=== PATIENT | female | born 1995 | race African-American/Black ===

== ENCOUNTER 2016-11-29 11:42 | Emergency (ER) | payer MEDICAID ==
[~2016-11-29] VITALS: Ht 162.6 cm; Wt 87.7 kg
[2016-11-29 13:26] VITALS: BP 128/68
== END 2016-11-29 13:26 | disposition home or self-care (01) ==
LOC: ED 11:42
DX: H66.92 Otitis media, unspecified, left ear (principal); H60.502 Unspecified acute noninfective otitis externa, left ear; H60.332 Swimmer's ear, left ear; Z88.6 Allergy status to analgesic agent; J45.909 Unspecified asthma, uncomplicated
CPT/HCPCS: J2270; Q0162

== ENCOUNTER 2017-01-15 11:07 | Emergency (ER) | payer MEDICAID ==
[~2017-01-15] VITALS: Ht 162.6 cm; Wt 85.9 kg
[2017-01-15 13:34] VITALS: BP 123/76
== END 2017-01-15 13:34 | disposition home or self-care (01) ==
LOC: ED 11:07
DX: R10.9 Unspecified abdominal pain (principal)

== ENCOUNTER 2017-10-13 15:26 | Emergency (ER) | payer OTHER ==
[~2017-10-13] VITALS: Ht 162.6 cm; Wt 80.7 kg
[2017-10-13 16:06] VITALS: Ht 162.6 cm; Wt 80.7 kg
[2017-10-13 20:47] VITALS: BP 120/73
== END 2017-10-13 20:47 | disposition home or self-care (01) ==
LOC: ED 15:26
DX: L03.316 Cellulitis of umbilicus (principal); J45.909 Unspecified asthma, uncomplicated; Z88.6 Allergy status to analgesic agent; Z88.8 Allergy status to other drugs, medicaments and biological substances

== ENCOUNTER 2017-12-22 17:27 | Emergency (ER) | payer OTHER ==
[~2017-12-22] VITALS: Ht 162.6 cm; Wt 77.1 kg
[2017-12-22 17:33] VITALS: Ht 162.6 cm; Wt 77.1 kg
[2017-12-22 20:09] LABS: BASOPHIL % 0.1 % (0-2); PLATELET COUNT 386 x10^3mcL (130-400)
[2017-12-22 20:11] LABS: RED CELL DISTRIBUTION WIDTH 21.8 % (11.5-14.5)
[2017-12-22 20:15] LABS: CALCIUM 9.4 mg/dL (8.5-10.1); CARBON DIOXIDE 26.1 mmol/L (21-32); CHLORIDE SERUM 98 mmol/L (98-107); CREATININE SERUM 0.6 mg/dL (0.6-1.0); GFR1 > 60 mL/min; GLUCOSE SERUM 88 mg/dL (74-106); POTASSIUM SERUM 3.7 mmol/L (3.5-5.1); SODIUM SERUM 132 mmol/L (136-145)
[2017-12-22 20:20] LABS: UA SPECIFIC GRAVITY <=1.005 (1.005-1.035); microscopic required? YES; urine erythrocyte 3+ (NEGATIVE)
[2017-12-22 20:37] LABS: rbc morphology (normal/abnorm) ABNORMAL (NORMAL)
[2017-12-22 22:16] VITALS: BP 143/80
== END 2017-12-22 22:16 | disposition left against medical advice (07) ==
LOC: ED 17:27
PROVIDERS: Emergency Medicine
DX: N10 Acute pyelonephritis (principal); N39.0 Urinary tract infection, site not specified
CPT/HCPCS: 99406; J0696; J1200; J2270; J2405; J3010; J7030

== ENCOUNTER 2018-03-31 16:10 | Emergency (ER) | payer OTHER ==
[~2018-03-31] VITALS: Ht 162.6 cm; Wt 80.3 kg
[2018-03-31 16:13] VITALS: Ht 162.6 cm; Wt 80.3 kg
[2018-03-31 19:29] VITALS: BP 112/74
== END 2018-03-31 19:29 | disposition home or self-care (01) ==
LOC: ED 16:10
DX: O00.90 Unspecified ectopic pregnancy without intrauterine pregnancy (principal); J45.909 Unspecified asthma, uncomplicated; Z88.8 Allergy status to other drugs, medicaments and biological substances; Z88.5 Allergy status to narcotic agent

== ENCOUNTER 2020-03-26 16:22 | Emergency (ER) | payer OTHER ==
[~2020-03-26] VITALS: Ht 160 cm; Wt 79.4 kg
[2020-03-26 17:16] VITALS: Ht 160 cm; Wt 79.4 kg
[2020-03-26 17:51] VITALS: BP 146/98
== END 2020-03-26 17:51 | disposition home or self-care (01) ==
LOC: ED 16:22
DX: K59.00 Constipation, unspecified (principal); H65.90 Unspecified nonsuppurative otitis media, unspecified ear; J45.909 Unspecified asthma, uncomplicated; Z88.6 Allergy status to analgesic agent
CPT/HCPCS: Q0162